=== PATIENT | female | born 1975 | race Caucasian/White ===

== ENCOUNTER → 2020-11-29 | Outpatient (CLI) | payer BC ==
[~2020-11-29] MED LIST: Z.0.LASIX20 MG PO; Z.0.LEXAPRO20 MG PO; Z.1.METFORMIN HCL100 PO; [UNRECOGNIZED DRUG - REMARK] PO
== END ==
LOC: MRI 13:45
PROVIDERS: ATTEND Family Medicine
DX: M51.26 Other intervertebral disc displacement, lumbar region (principal)
CPT/HCPCS: 72148